=== PATIENT | male | born 1975 | race Caucasian/White ===

== ENCOUNTER → 2022-08-21 | Outpatient (CLI) | payer BC ==
[~2022-08-21] MED LIST: FENO145T26 PO; HYDR-3455 PO
--- NOTE | 2022-08-21 16:57 | Diagnostic Imaging Report ---
CLINICAL INDICATIONS: Patient had head injury 20 years ago and pain ever since. EXAM: X-ray of the thoracic spine, 3 views. COMPARISONS: X-ray of the thoracic spine dated 10/19/2015. FINDINGS AND IMPRESSION: Of note, the upper and mid thoracic spine is obscured by overlapping anatomical structures. There is stable right curvature of the thoracic spine. There is no acute fracture or dislocation. Vertebral body heights and intervertebral disk heights are within normal limits, as visualized. Dictated by: Dictated on workstation # [id number]
== END ==
LOC: RAD 10:45
PROVIDERS: ATTEND Family Medicine
DX: M54.6 Pain in thoracic spine (principal)
CPT/HCPCS: 72072

== ENCOUNTER 2022-12-04 14:15 | Outpatient (RCR) | payer BC | END 2022-12-26 | disposition home or self-care (01) | PROVIDERS: ATTEND Family Medicine | DX: M54.6 Pain in thoracic spine (principal) ==